=== PATIENT | female | born 1980 | race Caucasian/White ===

== ENCOUNTER 2018-06-05 13:18 | Outpatient (CLI) | payer OTHER | END 2018-06-05 13:24 | disposition home or self-care (01) | LOC: MAMO-SONO 13:18 | DX: N64.4 Mastodynia (principal); N60.11 Diffuse cystic mastopathy of right breast; N63.10 Unspecified lump in the right breast, unspecified quadrant; N63.20 Unspecified lump in the left breast, unspecified quadrant; Z12.31 Encounter for screening mammogram for malignant neoplasm of breast ==

== ENCOUNTER 2018-09-12 09:31 | Emergency (ER) | payer OTHER ==
[~2018-09-12] VITALS: Ht 162.6 cm; Wt 95.7 kg
[2018-09-12] MEDS ORDERED: PRENATABS FA T1 EACH (10:09)
== END 2018-09-12 14:26 | disposition home or self-care (01) ==
LOC: ER 09:31
DX: S82.892A Other fracture of left lower leg, initial encounter for closed fracture (principal); W18.39XA Other fall on same level, initial encounter; Y93.89 Activity, other specified; Y92.091 Bathroom in other non-institutional residence as the place of occurrence of the external cause; Y99.8 Other external cause status

== ENCOUNTER 2018-09-12 16:21 | Outpatient (CLI) | payer OTHER ==
[~2018-09-12 16:21] MED LIST: PRENATABS FA T1 EACH
== END 2018-09-12 16:49 | disposition home or self-care (01) ==
LOC: RAD 16:21
DX: S82.875A Nondisplaced pilon fracture of left tibia, initial encounter for closed fracture (principal)

== ENCOUNTER 2018-09-13 09:25 | Outpatient (CLI) | payer OTHER | END 2018-09-13 09:27 | disposition home or self-care (01) | LOC: RAD 09:25 | DX: M79.605 Pain in left leg (principal) ==

== ENCOUNTER 2018-09-15 10:15 | Day surgery (SDC) | payer OTHER | END 2018-09-15 20:25 | disposition home or self-care (01) | LOC: CIR.AMB 10:15 | DX: S82.875A Nondisplaced pilon fracture of left tibia, initial encounter for closed fracture (principal); S93.432A Sprain of tibiofibular ligament of left ankle, initial encounter ==

== ENCOUNTER 2018-09-25 11:58 | Outpatient (CLI) | payer OTHER | END 2018-09-25 12:10 | disposition home or self-care (01) | LOC: TOM 11:58 | DX: S82.875D Nondisplaced pilon fracture of left tibia, subsequent encounter for closed fracture with routine healing (principal) ==

== ENCOUNTER 2018-11-16 09:48 | Outpatient (CLI) | payer OTHER | END 2018-11-16 09:50 | disposition home or self-care (01) | LOC: RAD 09:48 | DX: M25.562 Pain in left knee (principal) ==